=== PATIENT | female | born 1950 | race Caucasian/White ===

== ENCOUNTER 2017-04-08 09:00 | Inpatient (IN) | payer MEDICARE, OTHER ==
[~2017-04-08] VITALS: Ht 167.6 cm; Wt 71.8 kg
--- NOTE | ~2017-04-08 | OR ---
PATIENT'S NAME: MEDARDO SARITHA [facility] AGE: 66 Y [address] ROOM: [place] [address] LOCATION: [facility] ADMIT DATE: 04/22/2017 OR/Procedure Report DISCHARGE DATE: FAMILY PHYSICIAN: Perfecto Martinez MD ATTENDING PHYSICIAN: HI CONTRERAS SURGEON: Hi Contreras MD CULLET WASHER: 1. GUERRERO Dutta. 2. Jw Cuadra CST/ELBA. DATE OF PROCEDURE: 04/22/2017 PREOPERATIVE DIAGNOSIS: Degenerative joint disease, right knee. POSTOPERATIVE DIAGNOSIS: Degenerative joint disease, right knee. OPERATION: Right total knee arthroplasty with computer navigation. ANESTHESIA: Spinal anesthesia plus adductor canal block plus periarticular local anesthesia (ropivacaine with epinephrine and Toradol). ESTIMATED BLOOD LOSS: Less than 10 mL. DRAIN: None. SPECIMEN: None. COMPLICATIONS: None. IMPLANT SYSTEM: Meggan Triathlon. 1. Size 4 right posterior stabilized femoral component. 2. Size 3 universal modular tibial baseplate. 3. A 16 mm posterior stabilized size 3 X3 tibial polyethylene insert. 4. A 29 mm asymmetric X3 patellar component. INDICATIONS FOR SURGERY: Saritha Tafoya is a 66-year-old female who presents with advanced right knee degenerative joint disease and associated severely compromised activities of daily living. The patient has decided to proceed with knee replacement after having been thoroughly counseled regarding the associated risks, benefits, and limitations. We have specifically reviewed the risks and implications of infection, deep venous thrombosis, pulmonary embolism, mortality, neurovascular complications, blood transfusion (and associated potential for disease transmission or transfusion reaction), stiffness, instability, mechanical deterioration of the components (due to wear and or loosening), and the potential need for revision. We have also emphasized the importance of active involvement and compliance with post- operative physical therapy as a means of optimizing range of motion and PATIENT'S NAME: MEDARDO [facility] AGE: 66 Y [address] ROOM: [place] [address] LOCATION: [facility] ADMIT DATE: 04/22/2017 OR/Procedure Report DISCHARGE DATE: FAMILY PHYSICIAN: Perfecto Martinez MD ATTENDING PHYSICIAN: HI CONTRERAS functional recovery. Informed consent has been granted. DESCRIPTION OF PROCEDURE: The patient was positioned supine after administration of anesthesia and prophylactic antibiotics. A well-padded pneumatic tourniquet was placed around the right proximal thigh, and the right lower extremity was prepped and draped with vigilant sterile technique. The patient's name as well as the intended operative side and procedure were confirmed with a verbal time-out involving myself, the circulating nurse, the scrub nurse, and the anesthesiologist. Examination under anesthesia demonstrated well-healed inferomedial and inferolateral arthroscopy portal scars. There was a large effusion. There were no active skin lesions or masses. There was no erythema. There was no abnormal warmth. The right lower extremity was elevated and exsanguinated with an Esmarch wrap, and the pneumatic tourniquet was inflated to 300mmHg. The knee was approached through a longitudinal midline incision. A medial parapatellar arthrotomy was performed and the patella was everted. Examination of the joint space demonstrated a very large amount of benign-appearing translucent synovial fluid. There was generalized mild nonproliferative synovitis. There were 2 separate 1 cm diameter ossicles adherent to the medial collateral ligament. There was a 1 cm osseous fragment which was adherent (via soft tissue) to the anterior midportion of the tibial plateau at the posterior aspect of the patellar tendon insertion. This was excised. The anterior cruciate ligament was intact but attenuated. The posterior cruciate ligament was intact. There was a large fabella. There was full-thickness loss of articular cartilage involving the inferior half of the apex of the patella as well as 90% of the medial facet of the patella. There were large osteophytes at the superior and inferior aspects of the patella. There was mild grade 3 chondromalacia and mild chondrocalcinosis throughout the majority of the lateral facet of the patella. There were large osteophytes at the medial femoral condyle and medial femoral trochlea. There was a small osteophyte at the lateral margin of the femoral trochlea. There was a 2 cm diameter osteophyte at the superior margin of the femoral trochlea. There was full-thickness loss of articular cartilage throughout the medial femoral condyle and throughout the anteromedial 80% of the medial tibial plateau. There was erosion of approximately 3 mm of subchondral bone from the medial half of the medial tibial plateau. There was a moderate-sized osteophyte at the lateral femoral condyle. There was a large osteophyte at the anterior aspect of the lateral tibial plateau. There was full-thickness fissuring of the articular cartilage at the central aspect of the lateral femoral condyle. There was a 1 cm diameter region of high-grade partial-thickness articular cartilage loss at the medial aspect of the lateral tibial plateau. There were small peripheral PATIENT'S NAME: SARITHA TAFOYA [facility] AGE: 66 Y [address] ROOM: [address] [address] LOCATION: [facility] ADMIT DATE: 04/22/2017 OR/Procedure Report DISCHARGE DATE: FAMILY PHYSICIAN: Perfecto Martinez MD ATTENDING PHYSICIAN: HI CONTRERAS degenerative remnants of the medial and the lateral menisci. Remnants of the menisci and cruciate ligaments were excised. The [employer] computer navigation femoral tracker was pinned in place at the distal aspect of the femoral trochlea. Absence of motion between the femur and the tracking device was confirmed manually and visually. Femoral osseous landmarks were obtained in order to calibrate the computer navigation system. Landmarks included the center of rotation of the ipsilateral hip, the center-point of the distal femur, the femoral AP axis, 57 points on the medial femoral condyle articular surface, and 57 points on the lateral femoral condyle articular surface. The [employer] computer navigation system was subsequently utilized to position the distal femoral resection block such that the distal femoral resection was performed perfectly perpendicular to the femoral mechanical axis. The distal femoral resection was performed with a Vast oscillating saw. The [employer] computer navigation tibial tracker was pinned in place at the anterior aspect of the tibial plateau. Absence of motion between the tibia and the tracking device was confirmed manually and visually. Tibial osseous landmarks were obtained in order to calibrate the computer navigation system. Landmarks included the center-point of the tibial plateau, the AP tibial axis, 57 points on the medial tibial plateau articular surface, 57 points on the lateral tibial plateau articular surface, the medial malleolus, and the lateral malleolus. The [employer] computer navigation system was subsequently utilized to position the proximal tibial resection block such that the proximal tibial resection was performed perfectly perpendicular to the tibial mechanical axis. The proximal tibial resection was performed with a [employer] Precision oscillating saw. Perpendicularity of the tibial resection with respect to the tibial shaft axis was reconfirmed by inserting a spacer- block attached to an extramedullary guide wood. External rotation of the anterior and posterior femoral resections was set parallel to the epicondylar axis and carefully adjusted in order to create a rectangular flexion gap. The box resection was performed with a reciprocating saw. Anterior and posterior chamfer resections were performed with the oscillating saw. Posterior condyle osteophytes were excised with an osteotome. All other osteophytes were excised with a rongeur. Resection of all remnants of the menisci was reconfirmed. Flexion and extension gaps were confirmed to be symmetric and well balanced with a spacer-block technique. The patella resection was performed with an oscillating saw such that the composite thickness of the reconstructed patella was equivalent to the thickness of the hughes patella. Patella tracking was optimal, and there was no need for a lateral retinacular release. PATIENT'S NAME: SARITHA TAFOYA [facility] AGE: 66 Y [address] ROOM: [place] [address] LOCATION: [facility] ADMIT DATE: 04/22/2017 OR/Procedure Report DISCHARGE DATE: FAMILY PHYSICIAN: Perfecto Martinez MD ATTENDING PHYSICIAN: HI CONTRERAS All trial components were removed and all prepared osseous surfaces were thoroughly irrigated with pulsatile saline lavage and dried prior to cementing all three components in a single stage using [employer] Simplex cement containing pre-mixed tobramycin. All extruded excess cement was removed. The entire joint space was thoroughly inspected and thoroughly irrigated with bacteriostatic pulsatile saline lavage to assure that there was no residual debris of any sort. Final range of motion was from full extension (with no residual passive hyperextension) to 130 degrees of flexion. Patella tracking was reconfirmed to be optimal. There was excellent anteroposterior stability at 90 degrees of flexion. There was less than 1 mm of medial lift-off to valgus stress in full extension. There was less than 1 mm of lateral lift-off to varus stress in full extension. The arthrotomy was closed with multiple simple and [id number] interrupted #1 Vicryl. Subcutaneous tissues were thoroughly re-irrigated with bacteriostatic pulsatile saline lavage. Subcutaneous tissues were re- approximated with simple buried interrupted #0 Vicryl sutures. The skin was closed with simple buried interrupted 2-0 Vicryl sutures followed by surgical mary. The dressing consisted of Xeroform gauze, 4x4 gauze, ABD pads and two 6-inch Tom Wraps. There were no intra-operative complications. It should be noted that the physician's assistant front office manager played an active, integral role throughout this entire operation. By providing expert retraction, they greatly facilitated and expedited safe and effective exposure of the distal femur, proximal tibia and patella for preparation and implantation of the components. They were also actively involved in the patient's positioning, prepping and draping, as well as wound closure. MD ALEJANDRA MCCALLUM/mg /[id number] d: 04/22/17 1348 t: 04/26/17 2220, OPERATIVE SUMMARY
[~2017-04-08 09:00] MED LIST: AMLODIPINE-BEN1 EACH PO; ASPIRIN EC81 MG PO; CPAP INH; HUMIBID LA (MU600 MG PO; LEVOTHROID (S100 MCG PO; LIPITOR10 MG PO; METAMUCIL SUGA283 GM PO; MOBIC15 MG PO; NICORETTE 2 MG2 MG PO; NORPRAMIN25 MG PO; PAIN & FEVER500 MG PO; PROTONIX40 MG PO; THERA-VITE W/ B1 TAB PO; VITAMIN B-121000 MCG PO; VITAMIN D-32000 UNI1 PO; ZEBETA5 MG PO; ZOLOFT100 M1 PO; ZOLOFT50 MG PO
--- NOTE | 2017-04-22 15:45 | NUR ---
Significant Event: Patient came up from PACU at 1200. Had adductor canal block. Has full sensation. Up with 1 assist with walker. Dressing is C/D/I with ezwrap ice. Dilaudid given for anticipated pain. LR running at 80ml/hr in R) arm. Has midline in R) arm. Follow up:
--- NOTE | 2017-04-23 03:50 | NUR ---
Significant Event: Alert and oriented X3. BP slightly hypotensive @ 99/57 this am. On 3L 02 through CPAP. CPAP removed, was on room air for a short time and sats dropped to 80%. When pt ambulated back from bathroom sats dropped to as low as 70% (on RA). Extension tubing connected to nasal cannula for next ambulation to the bathroom. Lungs C&D in bases. Hx smoking, COPD, pneumonia, sleep apnea. Pt is up with 1 assist, gait belt and walker. Dressing is CDI. CSM WNL. Voided x2 this shift. Midline IV to R) upper arm saline locked. Bed alarm on. Encouraged IS use. Follow up: Push IS. Wean 02. Monitor respiratory status.
--- NOTE | 2017-04-23 15:05 | NUR ---
Introduced self/role to patient, lives in [place] with her . She has all the DME she feels she will need. will be there to assist. Denied any barriers to going home or at home. She is planning on home tomorrow. Added my name to her marker board, will follow.
--- NOTE | 2017-04-23 17:12 | NUR ---
Significant Event: pt alert and oriented. up with minimal assist to the bathroom . ambulates well. voids well. no bm today. iced to rt knee. tylenol for pain at 1700. nausea this afternoon zofran given. will ask for diluadid if needed. in the room with pt. home tomorrow. Follow up:
--- NOTE | 2017-04-24 04:16 | NUR ---
Significant Event: Dressing is clean, dry and intact. CSM WNL. Voids without difficulty. 1 assist with transfers. CPAP with 3 L of oxygen. Toradol last at 2110. Tylenol last at 2358. Family at bedside. Follow up:
[2017-04-24] MEDS ORDERED: ECOTRIN325 MG PO (13:52)
[2017-04-24] MEDS ORDERED: COLACE100 MG PO (13:54)
[2017-04-24] MEDS ORDERED: MIRALAX17 GM PO (13:56)
[2017-04-24] MEDS ORDERED: PROVENTIL OR V6.7 GM INH (13:59)
[2017-04-24] MEDS ORDERED: TRAMADOL HCL50 MG PO (14:00)
[2017-04-24] MEDS ORDERED: ROXICODONE 5MG (5 MG PO (14:01)
== END 2017-04-24 15:32 | disposition disaster alternative care site (69) | DRG 470 ==
LOC: G3N 04-22 06:01
PROVIDERS: ADMIT Orthopaedic Surgery
PROC: 0SRC0J9 Replacement of Right Knee Joint with Synthetic Substitute, Cemented, Open Approach (ICD-10-PCS; principal; 2017-04-22)
PROC: 8E0YXBZ Computer Assisted Procedure of Lower Extremity (ICD-10-PCS; 2017-04-22)
DX: M17.11 Unilateral primary osteoarthritis, right knee (principal); J96.11 Chronic respiratory failure with hypoxia; Z99.81 Dependence on supplemental oxygen; J44.9 Chronic obstructive pulmonary disease, unspecified; E03.9 Hypothyroidism, unspecified; E78.00 Pure hypercholesterolemia, unspecified; F41.9 Anxiety disorder, unspecified; G47.33 Obstructive sleep apnea (adult) (pediatric); I25.10 Atherosclerotic heart disease of native coronary artery without angina pectoris; K21.9 Gastro-esophageal reflux disease without esophagitis; K58.9 Irritable bowel syndrome, unspecified; I10 Essential (primary) hypertension
CPT/HCPCS: C1713; C1751; C1776; J1100; J1885; J2001; J2250; J2405; J2795; J7050; J7120

== ENCOUNTER → 2017-04-11 | Outpatient (CLI) | payer MEDICARE, OTHER ==
[~2017-04-11] MED LIST changes: +COLACE100 MG PO; +ECOTRIN325 MG PO; +MIRALAX17 GM PO; +PROVENTIL OR V6.7 GM INH; +ROXICODONE 5MG (5 MG PO; +TRAMADOL HCL50 MG PO
[2017-04-11 10:47] LABS: BILIRUBIN URINE NEGATIVE (NEGATIVE); BLOOD URINE NEGATIVE /UL (NEGATIVE); COLOR URINE YELLOW (YELLOW); GLUCOSE URINE NEGATIVE (NEGATIVE); KETONE URINE NEGATIVE (NEGATIVE); LEUKOCYTES URINE 100 /UL (NEGATIVE); NITRITE URINE NEGATIVE (NEGATIVE); PROTEIN URINE NEGATIVE (NEGATIVE); SPEC GRAVITY URINE 1.005 (1.003-1.035); TURBIDITY URINE CLEAR (CLEAR); UROBILINOGEN URINE NORMAL (NORMAL)
[2017-04-11 10:54] LABS: AMORPHOUS URINE 1+ (NEGATIVE); BACTERIA URINE NEGATIVE (NEGATIVE); RBC URINE 0-2 #/HPF (NEGATIVE)
[2017-04-11 10:55] LABS: WBC URINE 0-2 #/HPF (NEGATIVE)
== END ==
LOC: GNJRC 10:10
PROVIDERS: Orthopaedic Surgery
DX: Z01.818 Encounter for other preprocedural examination (principal); M17.11 Unilateral primary osteoarthritis, right knee